=== PATIENT | female | born 1945 | race Caucasian/White ===

== ENCOUNTER 2018-01-11 11:29 | Emergency (ER) | payer OTHER ==
[~2018-01-11] VITALS: Ht 160 cm; Wt 56.7 kg
[2018-01-11 11:30] VITALS: BP_SYST 147
[2018-01-11 12:06] LABS: BLOOD, URINE 3+ (NEGATIVE); CLARITY/URINE CLOUDY (CLEAR); COLOR,URINE YELLOW (YELLOW); GLUCOSE,URINE NEGATIVE (NEGATIVE); KETONES,URINE 1+ (NEGATIVE); LEUKOCYTE ESTERASE ,URINE 2+ (NEGATIVE); NITRITE, URINE POSITIVE (NEGATIVE); PROTEIN URINE 2+ (NEGATIVE)
[2018-01-11 12:15] LABS: BACTERIA,URINE MANY /HPF (None Seen); RBC,URINE 20-50 /HPF (0-3); WBC,URINE >100 /HPF (0-3)
[2018-01-11 12:16] LABS: MUCUS,URINE None Seen /LPF (None Seen)
[2018-01-11] MEDS ORDERED: LEVOFLOXACIN 500 MG TABLET PO ONE (12:30)
[2018-01-11] MEDS ORDERED: PHENAZOPYRIDINE HCL 100 MG TABLET PO ONE (12:30)
[2018-01-11 12:53] VITALS: BP_SYST 147
[2018-01-11 13:30] LABS: BILIRUBIN,URINE 1+ (NEGATIVE)
== END 2018-01-11 12:53 | disposition home or self-care (01) ==
LOC: SED 11:29
DX: N39.0 Urinary tract infection, site not specified (principal); I10 Essential (primary) hypertension
CPT/HCPCS: 81000-TC; 87086; 87186-TC; 99283

== ENCOUNTER 2018-02-08 15:08 | Emergency (ER) | payer OTHER ==
[~2018-02-08] VITALS: Ht 160 cm; Wt 56.2 kg
[2018-02-08 15:12] VITALS: BP_SYST 157
--- NOTE | 2018-02-08 15:27 | NUR ---
Patient is awake, alert and oriented x4. Patient is complaining of aching anal pain 10/10 since last night, constipation since yesterday, no BM since 1900 and it was painful. Patient lives with her daughter. She reports a history hypertension, hyperlipidemia, diverticulitis, rheumatoid arthritis, x1, cholecystectomy.
--- NOTE | 2018-02-08 15:27 | NUR ---
Patient to ER bed 08 to gown for evaluation. Side rails up. Report given to MADELYN CULLEN.
--- NOTE | 2018-02-08 15:30 | NUR ---
ER at bedside examining patient.
[2018-02-08] MEDS ORDERED: GLYCERIN 1 SUPP.RECT (ADULT) RC ONE (15:45)
[2018-02-08 16:06] LABS: BASOPHILS # (AUTO) 0.2 K/uL (0.0-0.2); BASOPHILS % (AUTO) 1.3 % (0.0-2.0); EOSINOPHILS % (AUTO) 0.1 % (0.0-4.0); HEMOGLOBIN 13.1 g/dL (12.0-16.0); LYMPHOCYTES # (AUTO) 0.8 K/uL (1.0-5.5); LYMPHOCYTES % (AUTO) 4.6 % (20.5-51.5); MEAN CORPUSCULAR HEMOGLOBIN 27 pg (27-31); MEAN CORPUSCULAR HGB CONC 34 % (32-36); MEAN CORPUSCULAR VOLUME 79 fL (79.0-98.0); MONOCYTES # (AUTO) 0.2 K/uL (0.0-1.0); MONOCYTES % (AUTO) 1.3 % (1.7-9.3); NEUTROPHILS # (AUTO) 15.5 K/uL (1.8-7.7); NEUTROPHILS % (AUTO) 92.7 % (40.0-70.0); PLATELET COUNT (AUTO) 448 K/uL (130-430); RED BLOOD CELL COUNT(AUTO) 4.93 MIL/uL (4.2-6.2); RED CELL DISTRIBUTION WIDTH 17.1 % (9.0-15.0); WHITE BLOOD COUNT (AUTO) 16.7 K/uL (4.8-10.8)
[2018-02-08 16:20] LABS: ANION GAP 11 (5-15); CALCIUM 9.3 mg/dL (8.4-11.0); CHLORIDE 105 mmol/L (98-107); CREATININE 1.04 mg/dL (0.55-1.30); GLUCOSE 122 mg/dL (70-99); POTASSIUM 3.6 mmol/L (3.5-5.1); SODIUM SERUM 139 mmol/L (136-145); UREA NITROGEN, BLOOD 23 mg/dL (8-21)
[2018-02-08 16:25] LABS: ALANINE AMINOTRANSFERASE 28 U/L (12-78); ALBUMIN 3.4 g/dL (3.4-4.8); ASPARTATE AMINOTRANSFERASE 17 U/L (10-37); TOTAL BILIRUBIN 0.3 mg/dL (0.0-1.0)
[2018-02-08 18:02] LABS: BILIRUBIN,URINE NEGATIVE (NEGATIVE); CLARITY/URINE HAZY (CLEAR); COLOR,URINE YELLOW (YELLOW); GLUCOSE,URINE NEGATIVE (NEGATIVE); KETONES,URINE NEGATIVE (NEGATIVE); LEUKOCYTE ESTERASE ,URINE NEGATIVE (NEGATIVE); NITRITE, URINE NEGATIVE (NEGATIVE); PROTEIN URINE TRACE (NEGATIVE); UROBILINOGEN,URINE 0.2 (0.2-1.0)
[2018-02-08 18:12] LABS: BLOOD, URINE TRACE (NEGATIVE)
[2018-02-08] MEDS ORDERED: MAGNESIUM CITRATE 300 ML ORAL SOLUTION PO ONE (18:15)
[2018-02-08 18:16] LABS: BACTERIA,URINE MANY /HPF (None Seen); WBC,URINE 0-3 /HPF (0-3)
[2018-02-08 18:17] LABS: MUCUS,URINE 1+ /LPF (None Seen)
--- NOTE | 2018-02-08 18:30 | NUR ---
DAUGHTER CARLO [phone] WAS CALLED AND WAS LEFT MESSAGE TO [employer] SUPERVISOR PT.
--- NOTE | 2018-02-08 19:00 | NUR ---
Daughter called back and hung up.
--- NOTE | 2018-02-08 19:05 | NUR ---
Called Valerie at , told her she needs to burr picker her mother.
--- NOTE | 2018-02-08 19:10 | NUR ---
Report given to Nancy for continuation of care.
[2018-02-08 19:15] VITALS: BP_SYST 138
--- NOTE | 2018-02-08 19:15 | NUR ---
Patient given written and verbal discharge instructions and verbalizes understanding. ER MD discussed with patient the results and treatment provided. Patient in stable condition. ID arm band removed. No Rx given. Patient educated on pain management and to follow up with PMD. Pain Scale 3. Dr. Cuadra aware, medication given in ED. Opportunity for questions provided and answered. Medication side effect fact sheet provided.
== END 2018-02-08 19:15 | disposition home or self-care (01) ==
LOC: SED 15:08
DX: K59.00 Constipation, unspecified (principal); I10 Essential (primary) hypertension; Z90.49 Acquired absence of other specified parts of digestive tract; Z90.710 Acquired absence of both cervix and uterus
CPT/HCPCS: 36415; 74021; 80053; 81000-TC; 85025; 87086; 99283; 99284

== ENCOUNTER 2020-11-08 11:15 | Emergency (ER) | payer OTHER, MEDICAID, SELFPAY ==
[~2020-11-08] VITALS: Ht 152.4 cm; Wt 59.0 kg
--- NOTE | 2020-11-08 11:15 | NUR ---
pt bib bls run c/c generalized weakness and dizziness x2 days. pt gcs 15 breathing noted tachypneic denies sob. Stach on monitor. placed in bed 6.
--- NOTE | 2020-11-08 11:20 | NUR ---
dr gallegos at bedside
[2020-11-08 11:26] VITALS: BP_SYST 159
--- NOTE | 2020-11-08 12:18 | NUR ---
dr gallegos made aware of pt hr, RR no orders at this time
[2020-11-08 12:45] LABS: BASOPHILS % (AUTO) 0.2 % (0.0-2.0); HEMATOCRIT 37.8 % (36-48); HEMOGLOBIN 12.6 g/dL (12.0-16.0); LYMPHOCYTES # (AUTO) 0.6 K/uL (1.0-5.5); LYMPHOCYTES % (AUTO) 2.7 % (20.5-51.5); MEAN CORPUSCULAR HEMOGLOBIN 26 pg (27-31); MEAN CORPUSCULAR HGB CONC 33 % (32-36); MEAN CORPUSCULAR VOLUME 79 fL (79.0-98.0); MONOCYTES # (AUTO) 0.8 K/uL (0.0-1.0); MONOCYTES % (AUTO) 3.8 % (1.7-9.3); NEUTROPHILS # (AUTO) 19.2 K/uL (1.8-7.7); NEUTROPHILS % (AUTO) 93.3 % (40.0-70.0); PLATELET COUNT (AUTO) 359 K/uL (130-430); RED BLOOD CELL COUNT(AUTO) 4.77 MIL/uL (4.2-6.2); RED CELL DISTRIBUTION WIDTH 17.2 % (9.0-15.0); WHITE BLOOD COUNT (AUTO) 20.6 K/uL (4.8-10.8)
[2020-11-08 13:10] LABS: ANION GAP 13 (5-15); CALCIUM 8.7 mg/dL (8.4-11.0); CHLORIDE 100 mmol/L (98-107); CREATININE 1.42 mg/dL (0.55-1.30); GLUCOSE 188 mg/dL (70-99); POTASSIUM 3.3 mmol/L (3.5-5.1); SODIUM SERUM 134 mmol/L (136-145); UREA NITROGEN, BLOOD 22 mg/dL (8-21)
[2020-11-08 13:11] LABS: INR 1.1 (0.8-1.2); PROTHROMBIN TIME 11.6 SECS (9.5-12.5)
[2020-11-08 13:16] LABS: ALANINE AMINOTRANSFERASE 29 U/L (12-78); ALBUMIN 3.4 g/dL (3.4-4.8); ASPARTATE AMINOTRANSFERASE 24 U/L (10-37); TOTAL BILIRUBIN 0.8 mg/dL (0.0-1.0)
[2020-11-08 13:17] LABS: ALCOHOL, BLOOD < 3 mg/dL (<10)
--- NOTE | 2020-11-08 13:22 | NUR ---
spoke to stroke nurse from [place], CT results relayed to nurse who states she will contact neuro and call ER back. Dr Olivia made aware
[2020-11-08] MEDS ORDERED: niCARdipine 25 MG in D5W 240 ML IV PRN (13:30)
[2020-11-08] MEDS ORDERED: niCARdipine 2.5 MG/ML, 10 ML VIAL (CARDENE) IV ONE (15:04)
--- NOTE | 2020-11-08 15:13 | NUR ---
report given to Femi CULLEN at [place] for continuation of care.
[2020-11-08 15:28] VITALS: BP_SYST 119
[2020-11-08] MEDS ORDERED: LABETALOL 100 MG/ 20ML VIAL ONE (15:28)
--- NOTE | 2020-11-08 15:29 | NUR ---
MAp greater than 100, dr allen notified medicated with labetolol IVP per order. tolerated well. als at bedside.
[2020-11-08] MEDS ORDERED: LABETALOL 100 MG/ 20ML VIAL IVP ONE (15:30)
== END 2020-11-08 15:29 | disposition home or self-care (01) ==
LOC: SED 11:15
DX: I62.9 Nontraumatic intracranial hemorrhage, unspecified (principal); I16.1 Hypertensive emergency; J45.909 Unspecified asthma, uncomplicated; D72.829 Elevated white blood cell count, unspecified; N19 Unspecified kidney failure
CPT/HCPCS: 36415; 70450; 71045; 76376; 80053; 83605; 84484; 85025; 85610; 85730; 87040; 93005; 96374; 99291; G0482; J3490; J7060; 99285